=== PATIENT | male | born 1990 | race Caucasian/White ===

== ENCOUNTER 2019-10-09 08:47 | Emergency (ER) | payer OTHER ==
[~2019-10-09] VITALS: Ht 172.7 cm; Wt 102.1 kg
--- NOTE | 2019-10-09 08:53 | NUR ---
CARMEL[facility] [employer] [facility] [address] From [facility] for Med Clearance/OK to book, patient states "I've been having shocking headaches and blurred vision for about a month" on and off. To ER bed 13, hooked to monitor, awaiting MD chavarria
--- NOTE | 2019-10-09 09:22 | NUR ---
Dr Eckert at bedside
[2019-10-09] MEDS ORDERED: HYDROCODONE/APAP 5/325MG 1 EACH TABLET ONE (10:44)
[2019-10-09] MEDS: HYDROCODONE/APAP 5/325MG 1 EACH TABLET PO ONE (10:48)
--- NOTE | 2019-10-09 11:26 | NUR ---
Patient discharged in [facility] [place] [id number] in stable condition. Written and verbal after care instructions given. Patient and deputy verbalizes understanding of instruction.
[2019-10-09 11:28] VITALS: BP 142/87
== END 2019-10-09 11:34 ==
LOC: ER 08:50
DX: S06.0X0A Concussion without loss of consciousness, initial encounter (principal); S00.83XA Contusion of other part of head, initial encounter; Z98.890 Other specified postprocedural states; W18.39XA Other fall on same level, initial encounter; Y93.89 Activity, other specified; Y92.89 Other specified places as the place of occurrence of the external cause; Y99.8 Other external cause status
CPT/HCPCS: 70450-TC; 70486-TC